=== PATIENT | male | born 1990 | race Caucasian/White ===

== ENCOUNTER → 2017-10-09 | Outpatient (CLI) | payer MEDICAID ==
--- NOTE | 2017-10-09 20:41 | XCELERA REPORT ---
[address] [address] Transthoracic Echocardiogram Report Name: RU PRASAD Age: 27 yrs Gender: Male : 1990 Patient Status: Outpatient Patient Location: Study Date: 10/09/2017 11:06 AM Height: 60 in Weight: 200 lb BSA: 1.9 m2 Reason For Study: DOWN SYNDROME Ordering Physician: JENNIFER DRAKE Performed By: Pearl Parker Interpretation Summary Technically poor study, perhaps due to pt 200# ans 61 inches. Apical view poor visualisation., unable to see all LV segments, and no biplane LVEF done. Atrial septum inadequately interrogated by color flow to r/o ASD in this Down's syndrome pt. AV configuration not certain if 3 cus[s, no by AV velocity, no AR. MC showed very borderline prolapse, as seen on PLAX view. No MR and no LA enlargement by M-mode. LV segments not all visualised. LVEF by PLAX is normal, and with no LVH and stage I LVDD, no LV enlargement R heart poorly imaged TR not visualised. If more info. needed consider HECTOR. MMode/2D Measurements & Calculations RVDd: 2.9 cm LVIDd: 4.9 cm FS: 41.3 % Ao root diam: 2.1 cm IVSd: 0.63 cm LVIDs: 2.9 cm EDV(Teich): 113.0 ml LVPWd: 0.74 cm ESV(Teich): 31.7 ml Ao root area: 3.6 cm2 EF(Teich): 72.0 % LVOT diam: 1.9 cm LVOT area: 2.8 cm2 Doppler Measurements & Calculations MV E max shana: MV dec slope: Ao V2 max: LV V1 max P.1 cm/sec 301.8 cm/sec2 90.8 cm/sec 1.5 mmHg MV A max shana: MV dec time: 0.21 sec Ao max PG: LV V1 max: 94.4 cm/sec 3.3 mmHg 60.9 cm/sec MV E/A: 0.68 MICHELLE(V,D): 1.9 cm2 PA V2 max: PI max shana: 142.6 cm/sec 150.9 cm/sec PA max P.1 mmHg PI max P.1 mmHg PI dec slope: 237.0 cm/sec2 Left Ventricle The left ventricle is grossly normal size. The left ventricular ejection fraction is normal. Doppler measurements suggest impaired left ventricular relaxation, which is associated with grade I/IV or mild diastolic dysfunction. Regional wall motion abnormalities cannot be excluded due to limited visualization. Right Ventricle The right ventricle is not well visualized secondary to technical limitations. Atria Right atrium not well visualized secondary to technical limitations. The left atrial size is normal. Interarterial septum not well visualized and not well dopplered. Cannot comment on ASD/PFO presence. Mitral Valve The mitral valve is normal in structure and function. There is holosystolic prolapse of the mitral valve leaflet(s). There is no mitral valve stenosis. There is no mitral regurgitation noted. Aortic Valve The aortic valve opens well. The aortic valve is not well visualized secondary to technical limitations. Cannot exclude aortic valvular vegetation. There is no aortic valve stenosis. No aortic regurgitation is present. Pulmonic Valve There is a trace or physiologic amount of pulmonic regurgitation. Great Vessels The aortic root is normal size. Effusions Minimal pericardial effusion. I WMSI = 1.00 % Normal = 100 Segments Size X - Cannot 2 - 4 - 1-2 small Interpret 1 - Normal Hypokinetic 3 - AkineticDyskinetic 3-5 moderate 5 - 6-14 large Aneurysmal 15-16 diffuse : JENNIFER DRAKE > Levar Holguin
== END ==
LOC: SP 10:45
PROVIDERS: ATTEND Family Medicine
DX: Q90.9 Down syndrome, unspecified (principal); I31.3 Pericardial effusion (noninflammatory)
CPT/HCPCS: 93306